=== PATIENT | male | born 1985 | race Hispanic/Latino ===

== ENCOUNTER 2024-01-07 08:17 | Outpatient (CLI) | payer OTHER ==
[2024-01-07 09:14] LABS: #Basophils 0.14 10x3/uL (0.0-0.2); #Eosinphils 1.33 10x3/uL (0.0-0.5); #Neutrophils 4.55 10x3/uL (1.5-8.4); %Basophils 1.4 % (0.0-2.0); %Eosinophils 13.4 % (0.0-6.0); %Lymphocytes 30.6 % (18.0-47.0); %Monocytes 7.1 % (0.0-10.0); Hematocrit 47.5 % (38.8-50.0); Hemoglobin 16.5 g/dL (13.5-17.5); Mean Corpuscular HGB CONC 34.7 g/dL (32.0-36.0); Mean Corpuscular Hemoglobin 30.1 pg (27.0-33.0); Mean Corpuscular Volume 86.5 fL (81.2-95.1); Mean Platelet Volume 12.8 fL (7.4-10.4); Platelet Count 231 10x3/uL (150-450); RBC Distribution Width 13.2 % (11.5-14.5); Red Blood Cell (RBC) Count 5.49 10x6/uL (4.32-5.72); White Blood Cell (WBC) Count 9.9 10x3/uL (3.5-10.5)
[2024-01-07 09:20] LABS: Anion Gap 16 mmol/L (10-20); BUN (Urea Nitrogen) 17 mg/dL (8.9-20.6); Calc. Creatinine Clearance 0 mL/min (70-130); Calcium 9.6 mg/dL (7.8-10.44); Carbon Dioxide 24 mmol/L (22-29); Chloride 101 mmol/L (98-107); Estimated GFR 97; Glucose 97 mg/dL (70-105); Potassium 4.2 mmol/L (3.5-5.1); Sodium 137 mmol/L (136-145)
== END 2024-01-07 08:18 | disposition home or self-care (01) ==
LOC: LABBT 08:17
PROVIDERS: ATTEND Surgery
DX: Z01.812 Encounter for preprocedural laboratory examination (principal); M79.89 Other specified soft tissue disorders
CPT/HCPCS: 80048; 85025

== ENCOUNTER 2024-01-14 07:43 | Day surgery (SDC) | payer OTHER ==
[2024-01-07 08:43] VITALS: BMI 30.8
[2024-01-14] MEDS ORDERED: EPINEPHrine 1 MG/ML VIAL ONE (09:42)
[2024-01-14] MEDS ORDERED: Lidocaine 2% PF 5 ML VIAL ONE ×2 (09:43→09:53)
[2024-01-14] MEDS ORDERED: Bupivacaine 0.25% HCL 30 ML VIAL ONE (09:43)
[2024-01-14] MEDS ORDERED: CEFAZOLIN 2 GM VIAL ONE (09:47)
[2024-01-14] MEDS ORDERED: Sodium Chloride 0.9% 100 ML ONE (09:48)
[2024-01-14] MEDS ORDERED: Midazolam HCl 2 mg/2 ml Vial ONE (09:50)
[2024-01-14] MEDS ORDERED: fentaNYL PF 100 MCG/2 ML SYRINGE ONE (09:50)
[2024-01-14] MEDS ORDERED: PROPOFOL 20 ML ONE (09:50)
[2024-01-14] MEDS ORDERED: Rocuronium Bromide 10 MG/ML (10ML VIAL) ONE (09:54)
[2024-01-14] MEDS ORDERED: Dexamethasone 4 mg/ml Vial ONE (10:10)
[2024-01-14] MEDS ORDERED: Ondansetron PF 4 MG/2 ML Vial ONE (10:10)
[2024-01-14] MEDS ORDERED: fentaNYL 50 mcg/mL 1 mL Vial ONE (11:38)
== END 2024-01-14 12:56 | disposition home or self-care (01) ==
LOC: SDC 07:43
PROVIDERS: ATTEND Surgery
PROC: 0WB80ZZ Excision of Chest Wall, Open Approach (ICD-10-PCS; principal; 2024-01-14)
DX: D36.14 Benign neoplasm of peripheral nerves and autonomic nervous system of thorax (principal); F17.210 Nicotine dependence, cigarettes, uncomplicated
CPT/HCPCS: 88307; J0171; J0665; J1100; J2001; J2250; J2405; J2704; J3010; J3490